=== PATIENT | female | born 1990 | race African-American/Black ===

== ENCOUNTER 2017-12-20 16:54 | Emergency (ER) | payer BC ==
--- NOTE | 2017-12-20 17:12 | UC ---
Respiratory Complaint HPI - HPI Summary HPI Summary: Pt presents with feeling fatigued and achy for one week. About 3 days ago she developed a productive cough and feeling like it hurts in her chest when she coughs. Has felt feverish, but has not taken her temperature. Has not taken anything OTC for her symptoms. 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 Denies sinus symptoms, SOB, chest pain, abdominal pain, n/v/ d/c. - History of Current Complaint Chief Complaint: UCRespiratory Stated Complaint: URI Time Seen by Provider: 12/20/17 17:12 Hx Obtained From: Patient Hx Last Menstrual Period: 10 days ago Onset/Duration: Gradual Onset Timing: Constant Pain Intensity: 0 Character: Cough: Productive - Allergies/Home Medications Allergies/Adverse Reactions: Allergies Allergy/AdvReac Type Severity Reaction Status Date / Time No Known Allergies Allergy Verified 12/20/17 17:11 PMH/Surg Hx/FS Hx/Imm Hx Previously Healthy: Yes - Surgical History Surgical History: None - Family History Known Family History: Positive: Unknown - Social History Occupation: Student Lives: Alone Alcohol Use: Occasionally Substance Use Type: None Smoking Status (MU): Never Smoked Tobacco Review of Systems Constitutional: Fever, Fatigue, Other - Body aches Skin: Negative Eyes: Negative ENT: Negative Respiratory: Cough Cardiovascular: Negative Gastrointestinal: Negative Neurovascular: Negative Neurological: Negative Psychological: Negative All Other Systems Reviewed And Are Negative: Yes Physical Exam - Summary Physical Exam Summary: GENERAL: NAD. WDWN. No pain distress. SKIN: No rashes, sores, ulcers, masses, lesions. HEENT: Head: AT/NC Eyes: EOM intact. Conjunctiva clear without inflammation or discharge. Ears: Hearing grossly normal. TMs intact, no bulging, erythema, or edema. Nose: Nasal mucosa pink and moist. NTTP maxillary and frontal sinus. Throat: Posterior oropharynx without exudates, erythema, or tonsillar enlargement. Uvula midline. NECK: Supple. Nontender. No lymphadenopathy. CHEST: CTAB. No r/r/w. No accessory muscle use. Breathing comfortably and in no distress. CV: RRR. Without m/r/g. Pulses intact. Brisk cap refill. NEURO: Alert. CN II-XII grossly intact. PSYCH: Age appropriate behavior. Triage Information Reviewed: Yes Vital Signs: Initial Vital Signs Temp 99.1 F 12/20/17 17:07 Pulse 59 12/20/17 17:07 Resp 18 12/20/17 17:07 BP 128/79 12/20/17 17:07 Pulse Ox 99 12/20/17 17:07 Diagnostic Evaluation - Laboratory O2 Sat by Pulse Oximetry: 99 Respiratory Course/Dx - Course Course Of Treatment: CXR: IMPRESSION: No radiographic evidence of acute cardiopulmonary disease. Suspect bronchitis - Differential Dx/Diagnosis Provider Diagnoses: Bronchitis Discharge - Sign-Out/Discharge Documenting (check all that apply): Discharge - Discharge Plan Condition: Stable Disposition: HOME Prescriptions: Albuterol HFA INHALER* [Ventolin HFA Inhaler*] 1 puff INH TID PRN #1 mdi PRN Reason: Sob/Wheezing Patient Education Materials: Acute Bronchitis (ED) Referrals: No Primary Care Phys,NOPCP [Primary Care Provider] - Additional Instructions: If you develop a fever, shortness of breath, chest pain, new or worsening symptoms - please call your PCP or go to the ED. - Billing Disposition and Condition Condition: STABLE Disposition: HOME
--- NOTE | 2017-12-20 18:19 | RAD ---
INDICATION: Cough COMPARISON: None TECHNIQUE: PA and lateral views of the chest were obtained. FINDINGS: The heart and mediastinum are normal in size and contour. The lungs are grossly clear. There is no evidence of large pleural effusion. Visualized bones are normal for the patient's age. There is no radiographic evidence of free air beneath the diaphragm IMPRESSION: No radiographic evidence of acute cardiopulmonary disease.
== END 2017-12-20 18:05 | disposition home or self-care (01) ==
LOC: UCEAST 16:54
DX: J40 Bronchitis, not specified as acute or chronic (principal)
CPT/HCPCS: 71046; 99202; G0463

== ENCOUNTER 2018-06-09 17:40 | Emergency (ER) | payer BC, OTHER ==
--- NOTE | 2018-06-09 17:46 | UC ---
Back Pain HPI - HPI Summary HPI Summary: 27 yo female presents with lower back pain since yesterday. She tells me that throughout the day yesterday she felt some aching in her lower back that her persisted to this evening. She has not taken anything for her discomfort. Pain is worse with movement. She informs me that a month ago she had a UTI and was treated and her symptoms resolved. She denies fever, chills, dysuria, hematuria , flank pain, or injury. Denies radiation of pain, numbness, tingling, saddle anesthesia, or loss of bowel/bladder control. - History of Current Complaint Stated Complaint: BACK PAIN Time Seen by Provider: 06/09/18 17:46 Hx Obtained From: Patient Hx Last Menstrual Period: 10 days ago Onset/Duration: Sudden Onset Severity Initially: Moderate Severity Currently: Moderate Pain Intensity: 6 Pain Scale Used: 0-10 Numeric - Allergies/Home Medications Allergies/Adverse Reactions: Allergies Allergy/AdvReac Type Severity Reaction Status Date / Time No Known Allergies Allergy Verified 12/20/17 17:11 Home Medications: Home Medications Levonorgestrel-Ethin Estradiol [Vienva 0.1-20 mg-Mcg] 1 tab PO DAILY 06/09/18 [ History Confirmed 06/09/18] PMH/Surg Hx/FS Hx/Imm Hx Respiratory History: Asthma - Surgical History Surgical History: None - Family History Known Family History: Positive: Unknown - Social History Occupation: Student Lives: Dormitory/Roommates Alcohol Use: Occasionally Substance Use Type: None Smoking Status (MU): Never Smoked Tobacco Review of Systems Constitutional: Negative Skin: Negative Respiratory: Negative Cardiovascular: Negative Gastrointestinal: Negative Genitourinary: Negative Neurovascular: Negative Musculoskeletal: Other: - Low back pain Neurological: Negative Psychological: Negative All Other Systems Reviewed And Are Negative: Yes Physical Exam - Summary Physical Exam Summary: GENERAL: NAD. WDWN. No pain distress. SKIN: No rashes, sores, lesions, or open wounds. NECK: Supple. FROM. Nontender. No lymphadenopathy. CHEST: CTAB. No r/r/w. No accessory muscle use. Breathing comfortably and in no distress. CV: RRR. Without m/r/g. Pulses intact. Cap refill <2seconds ABDOMEN: Soft. NTTP. No distention or guarding. No CVA tenderness. Bowel sounds present MSK: Mild TTP right>left paraspinal lumbar muscles. Pain with flexion and extension of spine. Negative SLR b/l for low back pain/radiation. Negative MENG. Strength 5/5 B/L LEs including dorsiflexion and plantar flexion. FROM B/ L LEs. No edema. NEURO: Alert. Sensations intact B/L LEs L3-S1. PSYCH: Age appropriate behavior. Triage Information Reviewed: Yes Vital Signs: Vital Signs: Temp Pulse Resp BP Pulse Ox 99.0 F 84 18 107/76 100 06/09/18 18:07 06/09/18 18:07 06/09/18 18:07 06/09/18 18:07 06/09/18 18:07 Laboratory Tests 06/09/18 06/09/18 18:24 18:26 POC Urine Color Dark yellow POC Urine Clarity Clear POC Urine pH 7.0 POC Ur Specif [place] 1.015 POC Urine Protein Negative POC Ur Glucose (UA) Negative POC Urine Ketones Negative POC Urine Blood Negative POC Urine Nitrite Negative POC Urine Bilirubin Negative POC Urine Urobilinogen 0.2 POC U Leukocyte Esteras Negative POC Ur Test Negative Vital Signs Reviewed: Yes Back Pain Course/Dx - Course Course Of Treatment: She is well appearing and UA/preg were negative. I suspect her pain is related to a muscle strain and advised her to apply heat and try ibuprofen for her discomfort. If her symptoms worsen/persist or if she develops new symptoms to follow up with [facility] - Differential Dx/Diagnosis Provider Diagnoses: Low back strain Discharge - Sign-Out/Discharge Documenting (check all that apply): Patient Departure All imaging exams completed and their final reports reviewed: No Studies - Discharge Plan Condition: Stable Disposition: HOME Prescriptions: Ibuprofen TAB* [Motrin TAB* 600 MG] 600 mg PO Q8H PRN #30 tab PRN Reason: Pain Patient Education Materials: Low Back Strain (ED), Lower Back Exercises (ED) Referrals: No Primary Care Phys,NOPCP [Primary Care Provider] - Additional Instructions: If you develop a fever, shortness of breath, chest pain, new or worsening symptoms - please call your PCP or go to the ED. Your Urine did not show any signs of infection. I suspect your discomfort is from a muscle strain. You may take your ibuprofen 600mg every 6-8hours as needed for pain. - Billing Disposition and Condition Condition: STABLE Disposition: Home
[2018-06-09 18:14] VITALS: BP 107/76
[2018-06-09] MEDS ORDERED: Ibuprofen TAB* 600 MG PO ONE (18:42)
== END 2018-06-09 18:55 | disposition home or self-care (01) ==
LOC: UCEAST 17:40
DX: S39.012A Strain of muscle, fascia and tendon of lower back, initial encounter (principal); X58.XXXA Exposure to other specified factors, initial encounter; Y92.9 Unspecified place or not applicable
CPT/HCPCS: 81003; 84702; 99212; A9270-GY; G0463